=== PATIENT | male | born 1955 | race Caucasian/White ===

== ENCOUNTER 2022-09-01 09:15 | Outpatient (RCR) | payer MEDICARE, BC, SELFPAY ==
[2022-08-12 15:26] LABS: Chloride* 105 mmol/L (96-114)
[2022-08-12 15:27] LABS: Albumin* 4.3 g/dL (3.3-5.0); Potassium* 4.1 mmol/L (3.6-5.1); Sodium* 137 mmol/L (135-149)
[2022-08-12 15:30] LABS: Alanine Aminotransferase* 38 U/L (4-50); Alkaline Phosphatase* 67 U/L (40-150); Aspartate Amino Transferase* 36 U/L (12-35); Bilirubin Total* 0.7 mg/dL (0.1-1.5); Blood Urea Nitrogen* 24 mg/dL (7-30); Calcium* 9.2 mg/dL (8.4-10.6); Carbon Dioxide* 23 mmol/L (20-32); Creatinine* 1.2 mg/dL (0.5-1.5); Estimated Glomerular Filt Rate 66 ml/min; Glucose* 84 mg/dL (60-115); Total Protein* 7.2 g/dL (6.0-8.3)
[2022-08-12 16:03] LABS: Basophils Absolute Auto 0.05 K/uL (0.00-0.30); Basophils Percent Auto 0.7 % (0.0-3.0); Eosinophils Percent Auto 1.4 % (0.0-7.0); Hematocrit 36.6 % (37.0-53.0); Hemoglobin* 12.3 gm/dL (13.5-17.5); Immature Granulocytes Abs Auto 0.01 K/uL (0.00-0.30); Immature Granulocytes Pct Auto 0.1 %; Lymphocytes Percent Auto 16.1 % (20-44); Mean Corpuscular HGB Conc 34 gm/dL (32-36); Mean Corpuscular Hemoglobin 31 pg (26-34); Mean Corpuscular Volume 92 fL (80-100); Monocytes Percent Auto 8.5 % (0.0-11.0); Neutrophils Percent Auto 73.2 % (42.0-72.0); Platelet Count* 270 K/uL (140-440); RDW Coefficient of Variation % 13.4 % (11.5-15.5); Red Blood Count 3.99 m/uL (4.30-5.90); White Blood Count* 6.97 K/uL (4.50-11.00)
[2022-08-12 16:15] LABS: Slide Review Reflex No
[2022-08-14 23:24] LABS: Carcinoembryonic Antigen 4.9 ng/mL (<=3.8)
== END 2023-02-08 23:59 | disposition home or self-care (01) ==
LOC: CCIC 09:15
PROVIDERS: PCP Family Medicine; Referring Provider Family Medicine; Visit Provider Internal Medicine Hematology & Oncology
DX: C18.2 Malignant neoplasm of ascending colon (principal)
CPT/HCPCS: 36415; 71260; 74177; 80053; 82378; 82565; 85025; 99212; 99213; 99214; Q9967

== ENCOUNTER 2024-10-09 12:43 | Outpatient (CLI) | payer MEDICARE, BC, SELFPAY ==
--- OUTSIDE RECORDS SUMMARY | 2024-10-04 11:18 | XMS_ITS | Clinical Summary ---
Author Organization [facility] Address [place], [place] [address] Care Team Providers Care Passenger Vessel Chef Name Role Phone Benny Dupree MD Primary Care Provider [phone] Allergies No known active allergies Medications fexofenadine (CARISSA) 180 mg tabletIndication s:Environmental allergies Take 1 tablet by mouth once daily with a meal. 90 tablet 4 06/07/2012 Active omega-3 fatty acids-vitamin E (FISH OIL) 1,000 mg cap Take by mouth once daily. 0 06/21/2016 Active multivitamin (MVI) tablet Take 1 tablet by mouth once daily. 0 06/21/2016 Active cholecalciferol (VITAMIN D) 1,000 unit tablet Take 1 tablet by mouth once daily. 0 06/21/2016 Active Active Problems Problem Noted Date Diagnosed Date Colon cancer 09/15/2023 Overview (09/15/2023): Colonoscopy 09/2023 hyperplastic polyp, repeat in 3 years Calculus of gallbladder with out cholecystitis without obstruction 08/01/2019 Sensorineural hearing loss, bilateral 07/08/2009 Family history of hearing loss 07/08/2009 Overview (07/08/2009): father Carpal tunnel syndrome 12/10/2008 Other and unspecified hyperlipidemia 12/10/2008 Resolved Problems Problem Noted Date Diagnosed Date Resolved Date Malignant neoplasm of ascending colon 05/26/2016 12/06/2022 Overview (06/15/2017): Poorly differentiated diagnosed in 05/2016. Colonoscopy 06/2017 hyperplastic polyp repeat in 3 years Encounters Date Type Department Care Team Description 10/04/2024 Travel 09/28/2024 2:30 PM CREEL CLEANER Ancillary Procedure [facility] [address] [facility] [place] [address] 09/28/2024 1:55 PM CREEL CLEANER Office Visit [facility] [address] [place] [address] Benny Dupree MD Musculoskeletal Problem (Right hip pain ) 09/27/2024 Travel 09/17/2024 9:45 AM CREEL CLEANER Nurse/Clinic Staff Only [facility] [address] [facility] [place] [address] Immunization/Injection (HEPATITIS B VACCINE PER DR. ALISON SHEFFIELD 08/15/24 ); Immunization/Injection 09/16/2024 Travel 09/04/2024 Medical Messaging [facility] [address] [place] [address] Benny Dupree MD Right thigh muscle 08/15/2024 9:20 AM CREEL CLEANER Office Visit [facility] [address] [place] [address] Alison Sheffield DO Travel ([place], [place] 10/27/24) 08/15/2024 Travel from Last 3 Months Immunizations Name Administration Dates Next Due AMB Influenza, IIV3 (Age >=3 years)(Flu Clinic Only) 07/22/2011,07/24/2010,08/27/2008 AMB Influenza, IIV4 PF (=>6 mos Flulaval,Fluzone Fluarix)(Flu Clinic Only) 07/26/2018,07/23/2014 COVID-19 vaccine (Pfizer-Bio NTech 30mcg/0.3mL) 12YO+ MONO-SUCROSE PF, MDV 01/25/2022 COVID-19 vaccine (Pfizer-Bio NTech 30mcg/0.3mL) PF, MDV 07/15/2021 Hepatitis A (Adult) 06/22/2002,12/19/2001 Hepatitis B (Adult) 09/17/2024,08/15/2024,2012 Influenza A (H1N1), Inactivated 12/01/2009 Influenza A (H1N1), Inactiva camryn (Age >=3 Years) 12/01/2009 Influenza, High-dose Inactivated 06/15/2024 Influenza, IIV3 (Age 6-35 mos) 07/22/2011 Influenza, IIV3 (Age >=3 years) 06/11/20 13,06/07/2012,07/24/2010,08/27,08/08/2007,08/31/2006,08/11/2005 Influenza, IIV4 08/01/2019, 7,06/16/2016,10/28,07/23/2014 Influenza, Inactivated AIIV4 (Age 65+ Years) Preserv Free 07/11/2023,06/21/2022,07/15/2021,07/14 [place] Encephalitis 08/15/2024,08/18/2018,07/05 Pneumococcal Conj 20-valent (Prevnar 20) 09/05/2023 Pneumococcal Poly,23-Valent (Pneumovax) 07/15/2021 Pneumococcal conj 13-Valent (Prevnar 13) 07/14/2020 Rabies Vaccine 07/27/2013,07/13/2013,07/06/2013 07/13/2013 Tdap 07/27/2018,12/10/2008 Typhoid (injectable) 08/15/2024,08/01/20 18,07/13/2013,10/06 Zoster (Shingrix-RZV, recombinant) 03/21/2020, Zoster (Zostavax-ZVL, live) 12/17/2015 Family History Medical History Relation Name Comments Other Brother in his sle ep of unknown causes at age 77. Probable heart disease. Other Father Parkinson's, De mentia, of Pneumonia at 77 Cancer Mother of Gastric cancer at 87 Relation Name Status Comments Brother (Age 77) Father Mother Sister Naty Alive Social History Tobacco Use Types Packs/Day Years Used Date Smoking Tobacco: Never Smokeless Tobacco: Never Tobacco Cessation:Counseling Given: Yes Alcohol Use Standard Drinks/Week Comments Yes 4 (1 standard drink = 0.6 oz pur e alcohol) 4-6 per week wine [facility] Utilities Answer Date Recorded Do you have trouble paying f or utilities (for example, heat, electricity, water, phone)? Yes 04/11/2024 PHQ-2 Answer Date Recorded PHQ-2 TOTAL SCORE 0 09/20/2023 Social Connections Answer Date Recorded Do you often feel lonely or isolated from those around you? 0 04/11/2024 Alcohol Use Answer Date Recorded How often do you have a drink containing alcohol ? 4 04/11/2024 How many drinks containing a lcohol do you have on a typical day when you are drinking? 0 04/11/2024 How often do you have five or more drinks on one occasion? 0 04/11/2024 Financial Resource Strain Answer Date R ecorded Difficulty of Paying Living Expenses 3 04/11/2024 Difficulty of Paying Living Expenses Not on file 04/11/2024 Food Insecurity Answer Date Recorded Do you worry your food will run out before you are able to buy more? 1 04/11/2024 Transportation Needs Answer Date Record ed Does lack of transportation keep you from medica l appointments? 1 04/11/2024 Does lack of transportation keep you from work, meetings or getting things that you need? 1 04/11/2024 Housing Stability Answer Date Recorded What is your housing situation today? 1 04/11/2024 Sex and Gender Information Value Date Recorded Sex Assigned at Not on file Legal Sex Male 5:25 AM CREEL CLEANER Gender Identity Not on file Sexual Orientation Not on file Occupation Industry Job Start Date Job End Date Retired Not on file Not on file Not on file Obstetrics History Last Filed Vital Signs Vital Sign Reading Time Taken Comments Blood Pressure 134/71 09/28/2024 1:25 PM CREEL CLEANER Pulse 62 09/28/2024 1:25 PM CREEL CLEANER Temperature 36.4 C (97.5 F) 09/28/2024 1:25 PM CREEL CLEANER Respiratory Rate 12 09/14/2023 11:22 AM CREEL CLEANER Oxygen Saturation 97% 09/28/2024 1:25 PM CREEL CLEANER Inhaled Oxygen Concentration - - Weight 73.7 kg (162 lb 8 oz) 09/28/2024 1:25 PM CREEL CLEANER Height 166.2 cm (5' 5.43) 09/20/2023 7:52 AM CS T Body Mass Index 26.68 09/20/2023 7:52 AM CREEL CLEANER Plan of Treatment Upcoming Encounters Date Type Department Care Team (Late st Contact Info) Description 10/09/2024 1:20 PM CREEL CLEANER Office Visit [facility] [address] [place] [address] Van Upton MD [address] [place] [address] Health Maintenance Due Date Last Done Comments BMI (ht and wt on same day) for age 18+ 09/20/2024 09/20/2023, 07/19/2022, 07/15/2021, Additional history exists Depression screening for age 12+ 09/20/2024 09/20/2023, 07/19/2022, 07/15/2021, Additional history exists Medicare Wellness for age 65+ 09/20/2024, 07/19/2022, 07/15/2021 Colonoscopy through age 75 09/14/202609/14, 09/14/2023, 09/14/2023, Additional history exists Tetanus booster 07/27/2028 07/27/2018, 12/10/2008 Lipids for age 45-75 09/20/2028 09/20/2023, 07/19/2022, 07/14/2020, Additional history exists RSV vaccine for adults or (1 - 1-dose 75+ series) 2030 Tdap Completed 07/27/2018, 12/10/2008 Zoster (shingles) series for age 50+ Completed 03/21/2020, 08/03/2019, 12/17/2015 Hepatitis C screening for ag e 18-79 Completed 07/19/2022 Pneumococcal series for age 50+ Completed 09/05/2023, 07/15/2021, 07/14/2020 COVID-19 vaccine series Completed 06/15/20 24, 07/11/2023, 06/21/2022, Additional history exists Influenza for age 65+ Completed 06/15/2024 , 07/11/2023, 06/21/2022, Additional history exists Procedures Procedure Name Priority Date/Time Associated Diagnosis Comments XR HIP 1 VIEW W PELVIS BILAT Routine 09/28/2024 2:02 PM CREEL CLEANER Hip pain, right LIPID PANEL W REFLEX MEASURED LDL Routine 09/20/2023 8:58 AM CREEL CLEANER Other hyperlipidemia COLONOSCOPY SCREENING Routine 09/14/2023 9:48 AM CREEL CLEANER History of colon cancer ANTI HCV Routine 07/19/2022 9:27 AM CDT Encounter for hepatitis C screening test for low risk patient from Last 3 Months or Most Recently Relevant to Health Maintenance Results * XR HIP 1 VIEW W PELVIS BILAT (09/28/2024 2:02 PM CREEL CLEANER) Anatomical Region Laterality Modality HIPS, HIPL, HIPR, Pelvis Compute d Radiography 09/28/2024 2:09 PM CREEL CLEANER Narrative 09/28/2024 2:09 PM CREEL CLEANER For Patients: As a result of the Cures Act, medical imaging exams and procedure reports are released immediately into your electronic medical record. You may view this report before your referring provider. If you have questions, please contact your health care provider. Indication: Hip pain Technique: Pelvis and right hip 2 views Comparison: CT abdomen and pelvis 06/29/2017 Findings: Chronic sclerotic changes about the symphysis pubis. Narrowing and spurring of both hip joints, right greater than left. No fracture. Impression: Moderate degenerative joint disease right hip. Dictated by David Mendoza MD @ 09/28/2024 2:09:09 PM (Electronically Signed) Procedure Note David Mendoza MD - 09/28/2024 For Patients: As a result of the Cures Act, medical imagingexams and procedure reports are released immediately into your electronicmedical record. You may view this report before your referring provider.If you have questions, please contact your health care provider. Indication: Hip pain Technique: Pelvis and right hip 2 views Comparison: CT abdomen and pelvis 06/29/2017 Findings: Chronic sclerotic changes about the symphysis pubis. Narrowing andspurring of both hip joints, right greater than left. No fracture. Impression: Moderate degenerative joint disease right hip. Dictated by David Mendoza MD @ 09/28/2024 2:09:09 PM (Electronically Signed) us Benny Dupree MD GENERAL IMAGING Final Resu lt * (ABNORMAL) LIPID PANEL W REFLEX MEASURED LDL (09/20/2023 8:58 AM CREEL CLEANER) CHOLESTEROL,TOTAL 216(H) 100 - 199 mg/dL 09/20/2023 4:44 PM CREEL CLEANER [facility] Comment: Cholesterol, Total Reference Ranges Desirable <200 mg/dL Borderline 200-239 mg/dL High >=240 mg/dL TRIGLYCERIDES 62 <150 mg/dL 09/20/2023 4:44 PM CREEL CLEANER [facility] HDL CHOLESTEROL 105 >40 mg/dL 4:44 PM CREEL CLEANER [facility] NON-HDL CHOLESTEROL 111 <145 mg/dl 09/20/2023 4:44 PM CREEL CLEANER [facility] CHOL/HDL RATIO 2.06 <4.50 09/20/2023 4:44 PM CREEL CLEANER [facility] LDL CHOLESTEROL 99 <=130 mg/dL 09/20/2023 4:44 PM CREEL CLEANER [facility] VLDL CHOLESTEROL 12 <=30 mg/dL 09/20/2023 4:44 PM CREEL CLEANER [facility] PROVIDER ORDERED STATUS RANDOM 09/20/2023 4:44 PM CREEL CLEANER [facility] Blood BLOOD SPECIMEN / Unknown Venipuncture / Unknown 09/20/2023 8:58 AM CREEL CLEANER 09/20/2023 9:00 AM CREEL CLEANER us Benny Dupree MD CHEMISTRY Final Resu lt [facility] [address] [place] [address], [place] * COLONOSCOPY (09/14/2023 10:23 AM CREEL CLEANER) 09/14/2023 10:2 3 AM CREEL CLEANER Narrative Transcriptions Adiel Alicia MD - 09/14/2023 11:12 AM CST Patient Name: Víctor Zamudio Procedure Date: 09/14/2023 Gender: Male Date of : 1955 Admit Type: Outpatient Procedure: Colonoscopy Proceduralist: Adiel Alicia MD , Melody Wadsworth, DINA(Nurse), Kayla Paez (Nurse) Referring MD: Benny Dupree Indications/Pre-Op Diagnosis: High risk colon cancer surveillance:Personal history of colon cancer, Last colonoscopy: July 2020 Medications: Fentanyl 100 micrograms IV, Midazolam 3 mgIV, The level of sedation administered wasmoderate Procedure Description: The patient had risks, benefits and alternatives explained to andgave informed consent. The patient had a stable cardiopulmonary status and judged an adequate candidate for conscious sedation. The endoscope [id number] was passed through the anus andadvanced to the terminal ileum. The colonoscopy was performed withoutdifficulty. The patient tolerated the procedure well. The quality of the bowel preparation was good. The terminal ileum and the rectum were photographed. Complications: No immediate complications. Estimated Blood Loss & Specimen: Estimated blood loss: none. Specimen collected - Yes and sent to Laboratory Findings: The perianal and digital rectal examinations were normal. There was evidence of a prior end-to-side colo-colonic anastomosis in the ascending colon. This was patent and was characterized by healthy appearing mucosa. Scattered small-mouthed diverticula were found in the sigmoidcolon. A 3 mm polyp was found in the rectum. The polyp wassemi-pedunculated. The polyp was removed with a cold snare. Resection and retrieval were complete. The exam was otherwise without abnormality. Impressions/Post-Op Diagnosis: - Patent end-to-side colo-colonic anastomosis, characterized byhealthy appearing mucosa. - Diverticulosis in the sigmoid colon. - One 3 mm polyp in the rectum, removed with a cold snare. Resectedand retrieved. - The examination was otherwise normal. Recommendation: - Patient has a contact number available for emergencies. The signsand symptoms of potential delayed complications were discussed with the patient. Return to normal activities tomorrow. Written discharge instructions were provided to the patient. - Resume previous diet. - Continue present medications. - Await pathology results. - Repeat colonoscopy date to be determined after pending pathology results are reviewed. Moderate Sedation: A time out was performed before the procedure. Moderate (conscious) sedation was administered by the endoscopy nurse and supervised bythe endoscopist. The following parameters were monitored: oxygensaturation, heart rate, blood pressure, EKG, CO2, respiratory rate, adequacy of pulmonary ventilation and reponse to care. Please refer to the patient's medical record flowsheets and nursing notes for moderate sedation details. Total physician intraservice time was 16 minutes. Adiel Alicia MD 09/14/2023 11:12:16 AM This report has been signed electronically. Note Initiated On: 09/14/2023 10:23 AM Procedure Code(s): --- Professional --- 27957, Colonoscopy, flexible; with removalof tumor(s), polyp(s), or other lesion(s) bysnare technique Diagnosis Code(s): --- Professional --- Z85.038, Personal history of other malignant neoplasm of large intestine Z98.0, Intestinal bypass and anastomosisstatus D12.8, Benign neoplasm of rectum K57.30, Diverticulosis of large intestine without perforation or abscess withoutbleeding CPT copyright 2021 [employer]. All rights reserved. The codes documented in this report are preliminary and upon fisher hoop net reviewmay be revised to meet current compliance requirements. Scope In: 10:48:21 AM Scope Withdrawal Time 0 hours 8 minutes 38 seconds Scope Out: 11:01:10 AM us Adiel Alicia MD PROCEDURE ORD Final Res ult * ANTI HCV (07/19/2022 9:27 AM CDT) HEPATITIS C ANTIBODY Non-React miladys Non-React miladys 07/19/2022 6:38 PM CDT [facility] Comment:Antibodies to HCV no t detected; does not exclude the possibility of exposure to HCV. Blood BLOOD SPECIMEN / Unknown Venipuncture / Unknown 07/19/2022 9:27 AM CDT 07/19/2022 9:28 AM CDT us Benny Dupree MD SEND OUTS Final Resu lt [facility] [address] [place] [address], [place] from Last 3 Months or Most Recently Relevant to Health Maintenance Insurance [employer] [place] MR PB ONLY [employer] HB ONLY MEDICARE PART B HB ONLY MEDICARE PART A HB ONLY Care Teams Passenger Vessel Chef Relationship Specialty Start Date End Date Benny Dupree MD [address] [place] [address] PCP - General 01/16/06
== END 2024-10-09 12:44 | disposition home or self-care (01) ==
LOC: INJ CL 12:44
PROVIDERS: PCP Family Medicine; Visit Provider Family Medicine
DX: M16.11 Unilateral primary osteoarthritis, right hip (principal); M25.551 Pain in right hip
CPT/HCPCS: 20610; 77002; J0702; Q9966

== ENCOUNTER 2025-04-17 05:57 | Day surgery (SDC) | payer MEDICARE, BC, SELFPAY ==
[2025-04-17] VITALS (17 sets, daily range): BP systolic 93–115; BP diastolic 55–83; PULSE 60–82; RESP 12–16; TEMP 36.3–37.7; O2SAT 93–99; BMI 27.5
[2025-04-17] MEDS: OXYCODONE (CR) 10 MG TAB.ER.12H PO (06:15)
[2025-04-17] MEDS: LACTATED RINGERS 1000 ML 1,000 ML 100 ML IV ×3 (06:15→10:31)
[2025-04-17] MEDS: ACETAMINOPHEN 500 MG TABLET 1000 MG PO (06:15)
[2025-04-17] MEDS: SODIUM CHLORIDE 0.9 % (FLUSH) 10 ML SYRINGE IVF (06:15)
--- NOTE | 2025-04-17 07:04 | W.PM.H&PU ---
History & Physical Update History & Physical Update H&P Reviewed and patient assessed: No changes noted
[2025-04-17] MEDS: MIDAZOLAM HCL 1 MG/ML inj IVP (07:05)
--- NOTE | 2025-04-17 07:09 | SUR.PREOP ---
TIME?OUT:?05 PT/RN/MDA?VERIFICATION?OF?SURGICAL?SITE,?PROCEDURE,?AND?CONSENT OBTAINED?PRIOR?TO?INVASIVE?PROCEDURE.
--- NOTE | 2025-04-17 07:15 | CRLHL7_ITS ---
For Patients: As a result of the Cures Act, medical imaging exams and procedure reports are released immediately into your electronic medical record. You may view this report before your referring provider. If you have questions, please contact your health care provider. Indication: Hip replacement surgery Technique: AP hip fluoroscopic image. Fluoroscopy time 37.8 seconds. Findings/Impression: Hardware from a right total hip arthroplasty is in satisfactory position. Dictated by David Mendoza MD @ 04/17/2025 9:19:36 AM (Electronically Signed)
[2025-04-17] MEDS: TRANEXAMIC ACID 100 MG/ML INJ 1000 MG IV (07:33)
--- NOTE | 2025-04-17 09:02 | P.ORPRC_ITS ---
Procedure Note Date of procedure: 04/17/25 Procedure: PREOPERATIVE DIAGNOSIS: 1. Right hip osteoarthritis, severe, primary POSTOPERATIVE DIAGNOSIS: 1. Right hip osteoarthritis, severe, primary PROCEDURE: 1. Right total hip arthroplasty-anterior approach 2. 74754 - intraoperative fluoroscopy up to 1 hour. SURGEON: Srikanth Guillaume MD. COLLATERAL SPECIALIST: Ricky Lr PA-C; NESTOR Pinedo - Of note, a skilled assistant men's soccer coach was critical for this case to aid in patient positioning, tissue retraction, limb manipulation/positioning, and closure. ANESTHESIA: Spinal anesthetic EBL: 300ml IMPLANTS: DePuy J&J uncemented total hip Fertile cup size 54, hole eliminator, +4 neutral liner Actis stem, high offset, size 5 +1.5 mm ceramic 36 mm head COMPLICATIONS: None evident INDICATIONS: The patient is a pleasant 69-year-old male who has experienced severe right hip pain and difficulty bearing weight. Workup included x-rays which revealed severe osteoarthrosis in the hip. Given the deformity, the dysfunction, and the pain, as well as the failure of nonoperative management, recommendation was made for surgery. FINDINGS: Full-thickness chondral loss diffusely throughout the femoral head and acetabulum. Osteophytes around the femoral head/neck junction and perimeter of the acetabulum. Moderate-large effusion upon entering the joint. DESCRIPTION OF PROCEDURE: Following a thorough discussion of risks, benefits, and alternatives consent was obtained and the right hip was marked. The patient was brought to the operating room and placed supine on the operating table. Induction of anesthesia was undertaken. 1 g IV Ancef and 1 g tranexamic acid was administered within 1 hr of incision preoperatively. Proper time-out was performed identifying proper patient, site, procedure. The operative extremity was prepped and draped in the appropriate sterile fashion using ChloraPrep after the patient was positioned on the [place] table with head in neutral alignment and all bony prominences well padded. C-arm fluoroscopic imaging was utilized to confirm proper pelvis rotation and position, and to get true AP films of both the contralateral left, and the affected right hip. This is for comparison. A longitudinal incision was made starting approximately 1 cm distal to the ASIS, and 2-3 cm lateral. The incision was extended distally aiming toward the fibular head. Sharp incision through skin and bovie cautery through the subcutaneous tissue allowed identification of the TFL fascia. This was sharply divided, and the fascia bluntly released from the muscle fibers as we dissected medial. Upon coming to the medial border, we were able to retract the TFL laterally, and penetrated the deeper fascia and identify the crossing circumflex vessels. These were ligated/cauterized. The rectus was elevated from the capsule, and retractors placed laterally and medially along the femoral neck to help with visualization of the capsule. We then performed an inverted T capsulotomy. The capsule was tagged for later repair. Retractors were placed inside the capsule. The femoral neck was visualized after releasing medially down to the lesser trochanter, along the saddle laterally, and up onto the acetabulum. The femoral neck cut was made in line with our preoperative templating. The head was removed in a single piece, and sized. We turned our attention to acetabular preparation. Initially, the labrum was resected from around the perimeter, the pulvinar was excised, allowing us to visualize the false wall. We started the reaming with a 43 mm reamer. This was medialized down to the true wall. We then enlarged our reamers sequentially up to one size less than the selected cup size. We trialed at the same size and found it to have an excellent fit. The selected cup was then opened, inserted, and impacted in line with the goal of 40? of abduction, and 20-25? of anteversion. This was confirmed on C-arm fluoroscopic imaging to be in the appropriate/goal position. Once the cup was placed we placed a hole eliminator and a liner consistent with preop planning. Attention was turned to the femoral preparation. The limb was extended, externally rotated, and adducted. The posteromedial capsule was released, as retractors were placed allowing excellent access to the proximal femur. Initially a gill box fixer was followed by canal finder followed by various broaches. We broached sequentially up to the size noted above, found it to have excellent rotational control, and trialing various heads and necks, revealed that appropriate neck offset, and the above noted head size provided the greatest stability, and pentecostal of length, and offset. C-arm fluoroscopic imaging confirmed position of the stem, as well as leg lengths, which were compared with the pre procedure all fluoroscopic images. Trial implants were removed, the real femoral stem inserted, as was the appropriate head. After reducing, the leg was placed through range of motion and stability was confirmed anterior, posterior, and lateral. A 3 min Betadine soak was then performed, and thorough irrigation with normal saline followed. Closure of the capsule was performed with #1 PDS. Bleeding was confirmed to be controlled at this stage, and the TFL fascia was closed with #0 strata fix. Subcutaneous, and subcuticular closure was performed with 2-0 Stratafix and 4-0 Stratafix, respectively. Dressings were applied, and the patient was awoken from anesthesia and transferred the PACU in stable condition. A skilled assistant men's soccer coach was critical for this case to aid in patient positioning, tissue retraction, acetabular and proximal femoral exposure, limb manipulati on/positioning, dislocation/relocation, patient safety, and closure. PLAN: 1. Weight bear as tolerated operative extremity. 2. 23 hr perioperative antibiotics. 3. Ice. 4. PT/OT consults for ambulation assistance/mobility education. 5. Social work consult for discharge planning. 6. DVT prophylaxis with at SCDs and Xarelto x5 days followed by aspirin for a total of 1 month.
--- NOTE | 2025-04-17 09:59 | W.ANESCHARGE ---
Anesthesia Charges Start Date/Time Anesthesia Start Date: 04/17/25 Anesthesia Start Time: 07:14 Stop Date/Time Anesthesia Stop Date: 04/17/25 Anesthesia Stop Time: 09:58 Coding CPT Codes CPT Codes: ANESTH HIP ARTHROPLASTY - 69952 ([id number]) P1 - NORMAL HEALTHY PATIENT, QK - WELL SERVICE FLOOR WORKER 2-4 CNCRNT ALEX PROC, QX - CONDITIONING ROOM WORKER SVPat W/ MED DIRECTION
--- NOTE | 2025-04-17 09:59 | P.ANES_ITS ---
Anesthesia Charges Start Date/Time Anesthesia Start Date: 04/17/25 Anesthesia Start Time: 07:14 Stop Date/Time Anesthesia Stop Date: 04/17/25 Anesthesia Stop Time: 09:58 Coding CPT Codes CPT Codes: ANESTH HIP ARTHROPLASTY - 30354 ([id number]) P1 - NORMAL HEALTHY PATIENT, QK - PERSONNEL ADMINISTRATOR 2-4 CNCRNT ALEX PROC, QX - LABORER STEEL HANDLING SVPat W/ MED DIRECTION
--- NOTE | 2025-04-17 10:05 | CRLHL7_ITS ---
For Patients: As a result of the Cures Act, medical imaging exams and procedure reports are released immediately into your electronic medical record. You may view this report before your referring provider. If you have questions, please contact your health care provider. Indication: Post op right TADEO Technique: AP hip centered pelvis and lateral view right hip Findings/Impression: Hardware from a right total hip arthroplasty is in satisfactory position. Bone alignment is normal. No sign of acute fracture. Postop changes are within normal limits. Dictated by David Mendoza MD @ 04/17/2025 12:16:31 PM (Electronically Signed)
--- NOTE | 2025-04-17 10:07 | P.ANES_ITS ---
Anesthesia Charges Start Date/Time Anesthesia Start Date: 04/17/25 Anesthesia Start Time: 07:14 Stop Date/Time Anesthesia Stop Date: 04/17/25 Anesthesia Stop Time: 09:58 Coding CPT Codes CPT Codes: ANESTH HIP ARTHROPLASTY - 84004 ([id number]) QK - SYSTEMS SOFTWARE MANAGER 2-4 CNCRNT ANES PROC, QX - CENTER CUSTOMER SERVICE ASSOCIATE SVC W/ MD MED DIRECTION, P1 - NORMAL HEALTHY PATIENT
--- NOTE | 2025-04-17 10:07 | W.ANESCHARGE ---
Anesthesia Charges Start Date/Time Anesthesia Start Date: 04/17/25 Anesthesia Start Time: 07:14 Stop Date/Time Anesthesia Stop Date: 04/17/25 Anesthesia Stop Time: 09:58 Coding CPT Codes CPT Codes: ANESTH HIP ARTHROPLASTY - 35958 ([id number]) QK - COMPUTER AIDED DRAFTER 2-4 CNCRNT ANES PROC, QX - BUNGHOLE BORER SVC W/ MD MED DIRECTION, P1 - NORMAL HEALTHY PATIENT
--- NOTE | 2025-04-17 10:08 | P.NB_ITS ---
Nerve Block Nerve Block Time Seen by Provider: 07:10 Date Seen: 04/17/25 Type of block requested by surgeon for post-operative analgesia: ABIMAEL/LFCN Side: right Time out performed: Yes Verification of patient name: Yes Verification of date of : Yes Site marking: site marked Name of person performing procedure: Nathan Continuous monitoring Was continuous monitoring of O2 sat, B/P, road service locksmith, recorded every 15 minutes?: Yes Procedure Checklist: sterile prep, needles and gloves Ultrasound guided. Images saved: Yes Medications given in 5ml increments after negative aspiration: Ropivicaine %: 0.5 mL: 30 Needle gauge: 20 Precedex (mcg): 25 Patient tolerated procedure well: Yes Additional comments: Needle noted below psoas tendon needle noted adjacent to LFCN Block Charges Block Charge (with Pro Fee): Other Periph Nerve Block Use of Ultrasound Machine for Block: Yes- US Guidance/pain block
[2025-04-17] MEDS: ACETAMINOPHEN 325 MG TABLET PO (12:34)
== END 2025-04-17 13:40 | disposition home or self-care (01) ==
LOC: OR 05:59
PROVIDERS: PCP Family Medicine; Visit Provider Orthopaedic Surgery Sports Medicine
PROC: (CPT 27130; principal; 2025-04-17 07:15)
DX: M16.11 Unilateral primary osteoarthritis, right hip (principal); G89.18 Other acute postprocedural pain
CPT/HCPCS: 27130; 01214; 36415; 64450; 73501; 76000; 76942; 86850; 86900; 86901; 97110; 97116; 97161; 97165; A9270; C1776; J0612; J0690; J1100; J2250; J2371; J2405; J2704; J2795; J3010; J7120